=== PATIENT | female | born 1965 | race Caucasian/White ===

== ENCOUNTER 2025-03-18 14:23 | Outpatient (CLI) | payer BC, SELFPAY ==
--- NOTE | ~2025-03-18 | DEXA_ITS ---
Bone Density Report Name: NNAMDI NICHOLS Age: 59 Sex: Female Ethnicity: White Date of : 1965 Indication: postmenopausal; screening for osteoporosis; prior fracture; cancer; Referring Provider: WENDY, SALVADOR Ramos Study: Bone densitometry was performed. Exam Date: March 18, 2025 Accession number: [id number] Bone Density: Region BMD T-score Z-score Classification AP Spine(L1, L2) 1.087 1.0 2.2 Normal Femoral Neck (Left) 0.746 -0.9 0.3 Normal Total Hip (Left) 0.779 -1.3 -0.5 Osteopenia Femoral Neck (Right) 0.746 -0.9 0.3 Normal Total Hip (Right) 0.831 -0.9 0.0 Normal Total Hip Mean 0.805 -1.1 -0.3 Osteopenia World Health Organization criteria for BMD impression classify patients as: Normal (T-score at or above -1.0), Osteopenia (T-score between -1.0 and -2.5), or Osteoporosis (T-score at or below -2.5). 10-year Fracture Risk: FRAX not reported because: Prior hip or vertebral fracture Clinical Information Provided by Patient: Have had a previous hip or vertebral fracture Has had a low trauma fracture Has the following medical conditions: Cancer Patient maximum height was 67 Menopause Age: 55 Drinks caffeinated beverages Onset of menses at age 14 Number of children 0 Impression: The patient has low bone mass, based on the Left Total Hip T-score. The patient has risk factors, including: previous fracture. Discussion: INCREASED RISK OF FRACTURE DUE TO HISTORY OF FRACTURE. The patient's previous fracture puts the patient at high risk of a future fracture. In untreated patients, the risk of osteoporotic fracture increases approximately two-fold for each 1.0 SD decrease in T-score. Low bone density is not the only risk factor for fracture; also consider factors such as patient's age, frailty or poor health, risk of falling, risk of injury, previous osteoporotic fracture, family history of osteoporosis, cigarette smoking, low body weight, etc. Not everyone with a low trauma fracture has osteoporosis; osteomalacia and other metabolic bone disorders should also be considered. Patients who have osteoporosis should be evaluated for specific diseases and conditions (secondary causes) that may cause or contribute to bone loss and fracture risk. National Osteoporosis Foundation (NOF) recommends pharmacologic intervention for patients with a prior hip or vertebral fracture regardless of BMD T-score. The patient should follow a healthful lifestyle (good nutrition with adequate calcium and vitamin D, and appropriate weight-bearing exercise). Follow-Up: Consider a repeat BMD and Vertebral Fracture Assessment (VFA) exam in 2 years or sooner if medically necessary, to reassess this patient's status. Reported by: GLORIA on 03/18/2025 3:01:00 PM. Reviewed, dictated and finalized at location A.
== END 2025-03-18 14:24 | disposition home or self-care (01) ==
LOC: MICIMG 14:25
PROVIDERS: PCP Internal Medicine; Visit Provider Internal Medicine
DX: M81.0 Age-related osteoporosis without current pathological fracture (principal); M85.852 Other specified disorders of bone density and structure, left thigh
CPT/HCPCS: 77080